=== PATIENT | male | born 1995 | race Caucasian/White ===

== ENCOUNTER 2022-08-12 16:08 | Emergency (ER) | payer BC, SELFPAY ==
--- NOTE | ~2022-08-12 | US_ITS ---
EXAMINATION: US scrotum doppler DATE: 08/12/2022 17:06 INDICATION: L testicular pain . TECHNIQUE: Grayscale and Doppler ultrasound images of the testes were obtained. COMPARISON: None. FINDINGS: The right testis is surgically absent. The left testis measures 3.0 x 2.8 x 5.1 cm. No test icular mass. There is normal vascular flow to the left testis. The left epididymis is normal with nor mal vascular flow. There is no varicocele or hydrocele. IMPRESSION: Surgically absent right testis, otherwise normal scrotal ultrasound findings. Reviewed, dictated and finalized at location K.
[2022-08-12 16:10] VITALS: BP 139/79; PULSE 63; RESP 18; TEMP 36.6; O2SAT 100
--- NOTE | 2022-08-12 16:56 | ED.MALEGU ---
HPI - Male Genitourinary General Chief complaint: Urogenital-Male Stated complaint: Testicle pain Time Seen by Provider: 08/12/22 16:35 History of Present Illness HPI Narrative: Patient is a 26-year-old male here for evaluation of testicular pain. 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 There is intermittent discomfort, described as a sharp shooting sensation,, and without warning. It is associated with some nausea but no vomiting. No trauma to the testicle. No rashes, burning when he urinates, concern for STIs. Related Data Allergies Allergy/AdvReac Type Severity Reaction Status Date / Time No Known Allergies Allergy Unverified 04/24/15 17:12 Review of Systems Review of Systems: Gen.: Denies fevers or chills Eyes: Denies eye pain or visual change ENT: Denies congestion Respiratory: Denies shortness of breath or cough CV: Denies chest pain or palpitations GI: Denies abdominal pain nausea, emesis or diarrhea reports testicular pain. Musculoskeletal: Denies back pain or muscle pain Neuro: Denies numbness, tingling, weakness or focal weakness Skin: Denies rash Except as documented, all other systems reviewed and negative PMFSH Social History Social History Smoking status: Never smoker Exam Narrative: APPEARANCE: Well appearing, no pain in distress, well-nourished. Head: Normocephalic and atraumatic. EYES: PERRLA/EOMI, conjunctivae clear NOSE: No nasal drainage EARS: External ear normal in appearance THROAT: Oropharynx is clear. Mucous membranes are moist. NECK: Supple. No adenopathy, no masses. RESPIRATORY: Airway patent, respirations nonlabored. Clear to auscultation bilaterally, no rales, rhonchi, wheezing. CARDIOVASCULAR: Regular rate and rhythm without murmurs, rubs, or gallops. : No testicular tenderness to palpation or gross abnormalities appreciated. There is no rashes to the scrotum or penis. No penile discharge. ABDOMINAL: Normoactive bowel sounds. Soft, nontender, nondistended. No rebound tenderness or guarding. MUSCULOSKELETAL: Extremities are warm and well-perfused. Moves all extremities well. No edema. NEURO: Normal speech. No focal neurologic deficits. SKIN: Skin is warm and dry. No rashes. PSYCHIATRIC: Normal affect/mood.. Course Vital Signs Vital signs: Vital Signs Temperature 97.9 F 08/12/22 16:10 Pulse Rate 63 08/12/22 16:10 Respiratory Rate 18 08/12/22 16:10 Blood Pressure 139/79 08/12/22 16:10 Pulse Oximetry 100 08/12/22 16:10 Oxygen Delivery Room Air 08/12/22 16:10 Temperature 97.9 F 08/12/22 16:10 Pulse Rate 63 08/12/22 16:10 Respiratory Rate 18 08/12/22 16:10 Blood Pressure 139/79 08/12/22 16:10 Pulse Oximetry 100 08/12/22 16:10 Oxygen Delivery Room Air 08/12/22 16:10 MDM - Male Genitourinary MDM Narrative Medical decision making narrative: 26-year-old male here for evaluation of testicular pain x2 days. Patient is nontoxic in appearance and has normal vital signs. There are no abnormalities on his examination, no tenderness to palpation of the testicle, rashes or lesions. UA is unremarkable. Scrotum ultrasound is negative. Unclear etiology of symptoms. Will provide with urology follow-up, we discussed return precautions to the ED and he voiced understanding. Lab Data Labs: Lab Results 08/12/22 Range/Units 17:28 Urine Color Yellow (Yellow) Urine Appearance Clear (Clear) Urine pH 7.0 (5.0-9.0) Ur Specific [place] 1.018 (1.001-1.035) Urine Protein Negative (Negative) mg/dL Urine Glucose (UA) Negative (Negative) mg/dL Urine Ketones Negative (Negative) mg/dL Ur Blood (Man) Negative (Negative) Urine Nitrate Negative (Negative) Urine Bilirubin Negative (Negative) Urine Urobilinogen 1.0 (<2.0) mg/dL Leukocyte Esterase Rfl Negative (Negative) GILLIAN/UL
[2022-08-12 17:34] LABS: Appearance Urine Clear (Clear); Bilirubin Urine Negative (Negative); Blood Urine Negative (Negative); Color Urine Yellow (Yellow); Glucose Urine UA Negative (Negative); Ketones Urine Negative (Negative); Leukocyte Esterase Ur Negative LEU/UL (Negative); Nitrate Urine Negative (Negative); Protein Urine Negative (Negative); Specific Grav Ur 1.018 (1.001-1.035)
[2022-08-12 17:38] LABS: Add Urine Microscopic? NO
== END 2022-08-12 17:54 | disposition home or self-care (01) ==
PROVIDERS: Emergency Provider Physician Assistant
DX: N50.812 Left testicular pain (principal)
CPT/HCPCS: 76870; 81003; 93976; 99284

== ENCOUNTER 2024-08-06 09:47 | Emergency (ER) | payer BC, SELFPAY ==
--- NOTE | ~2024-08-06 | XR_ITS ---
PA, oblique, and lateral views of the right thumb CLINICAL HISTORY: Injury FINDINGS: No fracture or dislocation seen. Joint spaces are intact. Soft tissues are unremarkable. IMPRESSION: Unremarkable exam. Reviewed, dictated and finalized at location . IMPRESSION: Unremarkable exam.
[2024-08-06 09:54] VITALS: BP 135/89; PULSE 78; RESP 16; TEMP 36.8; O2SAT 100
--- NOTE | 2024-08-06 09:54 | ED_ITS ---
HPI - Extremity Injury (Upper) General Chief Complaint: Extremity Injury, Upper Stated Complaint: Injured Thumb patient presents to the [facility] with complaints increased pain color changes to right thumbnail, redness to right thumbnail. noted smashing his right car door yesterday and waking this morning to worsening. Patient reports taking applying ice to the area minimal relief symptoms. Denies numbness, tingling, drainage from the area. Related Data Home Medications ?Medication ?Instructions ?Recorded ?Confirmed ?Last Taken ?Type No Home Medications 08/06/24 08/06/24 Unknown History Allergies Allergy/AdvReac Type Severity Reaction Status Date / Time No Known Allergies Allergy Verified 08/06/24 09:53 Review of Systems Constitutional: Constitutional: Reports as per HPI, Denies chills, Denies fever(s) and Denies weakness Eyes: Eyes: Reports no additional eye complaints Cardiovascular: Cardiovascular: Reports no additional cardiovascular complaints Respiratory: Respiratory: Reports no additional respiratory complaints Gastrointestinal: Gastrointestinal: Reports no additional gastrointestinal complaints Genitourinary: Genitourinary: Reports no additional male genitourinary complaints Musculoskeletal: Musculoskeletal: Reports as per HPI, Reports arthralgias, Reports joint swelling, Reports limited range of motion and Reports stiffness Comments: Bruising, redness, and symptoms right thumb Integumentary/Breasts: Skin/Breast: Reports as per HPI, Reports swelling, Reports change in nails, Reports erythema and Reports skin pain Comments: right thumb Neurologic: Reports as per HPI, Denies numbness, Denies radicular pain and Denies tingling Psychiatric: Psychiatric: Reports no additional psychiatric complaints Endocrine: Endocrine: Reports no additional endocrine complaints Hematologic/Lymphatic: Hematologic/Lymphatic: Reports no additional hematologic/lymphatic complaints Allergic/Immunologic: Allergic/Immunologic: Reports no additional allergic/immunologic complaints [facility] Social History Social History Smoking status: Never smoker Exam Const: General: cooperative, healthy appearing, comfortable, no acute distress, well developed, alert and awake Orientation/consciousness: patient oriented x3 Resp: Effort & Inspection: normal respiratory effort and able to speak in complete sentences Auscultation: clear to auscultation bilaterally Cardio: Rate: regular rate Rhythm: regular rhythm Heart sounds: S1 normal heart sound present and S2 normal heart sound present Skin: General skin exam: elasticity normal, turgor normal, ecchymosis and erythema Lesions: no lesions Rashes: no rashes Hair: normal Nails: other ( subungual hemorrhage right thumb) Neuro: General: oriented to person, oriented to place, oriented to time and patient oriented x3 Speech: normal speech Gait exam (Neuro): Normal gait present Motor exam (neuro): 5/5 motor strength present throughout Sensory Exam: normal sensation Extrem: Right upper extremity: Extremity exam: right hand abnormal to inspection, neuromotor exam normal, neurosensory exam normal, tendon exam normal, tenderness of the thumb, abnormal ROM of finger pain with active ROM of the thumb, swelling of the thumb and ecchymosis of the thumb; abnormal capillary refill, no abrasions, no lacerations, no crepitus, no foreign bodies and no puncture wound Psych: Appearance: grossly normal Speech and movement: Normal speech and movement present Affect: normal affect Attitude: cooperative Course Course Level of Care: Express Care Visit Procedures Nail Trephination Nail Trephination #1: Nail Trephination Date: 08/06/24 Nail Trephination Time: 10:23 Location (finger): right and thumb Sterile prep: betadine Method of drainage: nail cautery Procedure successful: Yes Patient tolerated procedure: well Nail Trephination Comment: subungual hematoma drained. MDM - Extremity Injury (Upper) MDM Narrative Medical decision making narrative: Discharge instructions reviewed with patient, as well as provided in writing per nursing staff. The instructions also include specific and strict return/GO TO THE ER as well as f/u information. All questions have been answered, and the patient deny any further questions with discharge and discharge plan. Differential Diagnosis Differential diagnosis: Likely finger sprain, dislocation of finger and other ( contusion finger, subungual hemorrhage) Medical Records Attestation: I reviewed the patient's medical records. Imaging Data Attestation: I personally reviewed and interpreted this imaging study as foll ows: My impression: no fracture or dislocation Radiologist's impression: IMPRESSION: Unremarkable exam. Reviewed, dictated and finalized at location . Discharge Plan Discharge Clinical Impression: Hematoma, subungual, thumb, right, Contusion of right thumb nail Patient Disposition: Home Condition: Stable Instructions: Antibiotic Form, Subungual Hematoma (ED), Contusion in Adults (ED) Additional Instructions: keep the nail covered for the next days he may have some bleeding and drainage coming from the hole we made. May use ice or Epsom salt soaks to help with comfort. Use ibuprofen as needed for pain and swelling. Follow-up with primary care physician if symptoms worsen or do not improve. Patient Language: Burmese Follow-up/Referrals: PHYSICIAN,REHEATER [Primary Care Provider] - Time of Disposition: 10:27
== END 2024-08-06 10:39 | disposition home or self-care (01) ==
PROVIDERS: Emergency Provider Nurse Practitioner Family
DX: S60.111A Contusion of right thumb with damage to nail, initial encounter (principal); W23.2XXA Caught, crushed, jammed or pinched between a moving and stationary object, initial encounter
CPT/HCPCS: 11740; 73140; 99213; G0463